=== PATIENT | female | born 1995 | race Caucasian/White ===

== ENCOUNTER → 2017-03-26 | Outpatient (CLI) | payer OTHER ==
--- NOTE | 2017-03-26 15:46 | DIAGNOSTIC IMAGING REPORT ---
RIGHT KNEE 4 OR MORE CLINICAL HISTORY: 21 years-old Female presenting with right lateral knee pain, training for marathon. TECHNIQUE: Frontal, lateral, tunnel and sunrise views of the right knee were obtained. COMPARISON: None. FINDINGS: No acute fracture or malalignment. No large effusion. Regional soft tissues normal. No significant degenerative change. No abnormal sclerosis or periosteal reaction to suggest stress injury. IMPRESSION: No evidence of acute osseous injury of the right knee. No sclerosis or periosteal reaction to suggest stress injury. If there is continuing clinical concern, MRI could be obtained. Electronically signed by: Reno Kaufman M.D. 03/26/2017 3:45 PM Dictated Date/Time: 03/26/2017 3:41 PM
== END | disposition home or self-care (01) ==
LOC: C.RDSM 14:13
PROVIDERS: ATTEND Family Medicine
DX: M25.561 Pain in right knee (principal)